=== PATIENT | male | born 1995 | race American Indian/Alaskan Native ===

== ENCOUNTER 2021-05-02 11:19 | Emergency (ER) | payer SELFPAY ==
[2021-05-02 11:30] VITALS: BP 133/61
--- NOTE | 2021-05-02 11:36 | Emergency Department Report ---
ED ENT HPI - General Chief complaint: Dental/Oral Stated complaint: TOOTH ACHE Time Seen by Provider: 05/02/21 11:32 Source: patient Mode of arrival: Ambulatory Limitations: No Limitations - History of Present Illness Initial comments: Patient presents with a 2-week history of dental pain. The pain is in the left upper molar area. The tooth is broken off. It is been temperature sensitive. He notes that it has an infection in it. He was actually on antibiotics about 3 weeks ago. This was amoxicillin for the other side of his oral cavity and den tabatha infection. He has not seen a dentist. He is aware that he needs to see a dentist. The pain in the left side today is constant and aching. It does not radiate or migrate. He states it is worse with eating and with cold foods. He has taken [id number] medication without symptomatic improvement. - Related Data Previous Rx's Medication Instructions Recorded Last Taken Type Naproxen [Naprosyn] 500 mg PO BID PRN #20 tablet 05/02/21 Unknown Rx clindamycin HCL [Clindamycin HCl] 300 mg PO 4XD #30 capsule 05/02/21 Unknown Rx Allergies Allergy/AdvReac Type Severity Reaction Status Date / Time No Known Allergies Allergy Verified 05/02/21 11:24 ED Dental HPI - General Chief complaint: Dental/Oral Stated complaint: TOOTH ACHE Time Seen by Provider: 05/02/21 11:32 Source: patient Mode of arrival: Ambulatory Limitations: No Limitations - Related Data Previous Rx's Medication Instructions Recorded Last Taken Type Naproxen [Naprosyn] 500 mg PO BID PRN #20 tablet 05/02/21 Unknown Rx clindamycin HCL [Clindamycin HCl] 300 mg PO 4XD #30 capsule 05/02/21 Unknown Rx Allergies Allergy/AdvReac Type Severity Reaction Status Date / Time No Known Allergies Allergy Verified 05/02/21 11:24 ED Review of Systems ROS: Stated complaint: TOOTH ACHE Other details as noted in HPI Comment: All other systems reviewed and negative Constitutional: denies: fever Eyes: denies: vision change ENT: as per HPI Respiratory: denies: cough Cardiovascular: denies: chest pain Endocrine: denies: unexplained weight loss Gastrointestinal: denies: vomiting Musculoskeletal: denies: back pain Skin: denies: rash Neurological: headache Hematological/Lymphatic: denies: easy bruising ED Past Medical Hx - Past Medical History Previous Medical History?: No - Surgical History Past Surgical History?: No - Family History Family history: no significant - Medications Home Medications: Home Medications Medication Instructions Recorded Confirmed Last Taken Type Naproxen [Naprosyn] 500 mg PO BID PRN #20 tablet 05/02/21 Unknown Rx clindamycin HCL [Clindamycin HCl] 300 mg PO 4XD #30 capsule 05/02/21 Unknown Rx ED Physical Exam - General Limitations: No Limitations, Other (Pulse ox noted and normal) General appearance: alert, in no apparent distress - Head Head exam: Present: atraumatic, normocephalic, normal inspection - Eye Eye exam: Present: normal appearance, EOMI. Absent: scleral icterus - ENT ENT exam: Present: mucous membranes moist, other (Patient has diffuse dental caries. There is no gingival erythema or edema. There is tenderness with palpation over the left upper wisdom tooth area. There is a fractured tooth that is broken off at the gumline.) - Neck Neck exam: Present: normal inspection. Absent: meningismus - Respiratory Respiratory exam: Absent: respiratory distress - Cardiovascular Cardiovascular Exam: Absent: JVD - Extremities Exam Extremities exam: Present: normal capillary refill - Back Exam Back exam: Present: full ROM - Neurological Exam Neurological exam: Present: alert, oriented X3, CN II-XII intact, normal gait. Absent: motor sensory deficit - Psychiatric Psychiatric exam: Present: normal affect, normal mood - Skin Skin exam: Present: warm, dry ED Course Vital Signs 05/02/21 11:29 Temperature 98.5 F Pulse Rate 71 Respiratory 16 Rate Blood Pressure 133/61 [Left] O2 Sat by Pulse 100 Oximetry - Reevaluation(s) Reevaluation #1: 05/02/21 11:36 Patient was discharged. Old records noted ED Medical Decision Making - Medical Decision Making Patient presents with dentalgia. Has evidence of an apical abscess and infection. He does not have a buccal cellulitis. There is no direct trauma that would suggest a dental fracture. He is aware that he needs to see dentist. There is no evidence of airway compromise. He does not have peritonsillar edema. There is no gingivitis. Critical Care Time: No Critical care attestation.: If time is entered above; I have spent that time in minutes in the direct care of this critically ill patient, excluding procedure time. ED Disposition Clinical Impression: Dentalgia, Apical alveolar abscess Disposition: HOME / SELF CARE / HOMELESS Is pt being admited?: No Condition: Stable Instructions: Dental Abscess, Preventive Dental Care, Adult Additional Instructions: Have a soft diet. Drink plenty water. Return for problems. See dentist as soon as possible. Take all the antibiotics. Prescriptions: clindamycin HCL [Clindamycin HCl] 300 mg PO 4XD #30 capsule Naproxen [Naprosyn] 500 mg PO BID PRN #20 tablet PRN Reason: Pain , Severe (7-10) Referrals: PRIMARY CAREMD [Referring] - 3-5 Days DEEPTI IBARRA MD [Staff Physician] - 3-5 Days Forms: Work/School Release Form(ED)
== END 2021-05-02 11:58 | disposition home or self-care (01) ==
LOC: EDBD → ED 11:19
DX: K04.7 Periapical abscess without sinus (principal)
CPT/HCPCS: 99282

== ENCOUNTER 2021-05-12 19:26 | Emergency (ER) | payer SELFPAY ==
[2021-05-12 19:40] VITALS: BP 133/75
[2021-05-12] MEDS ORDERED: IBUPROFEN 600 MG TAB PO ONE (19:46)
[2021-05-12] MEDS ORDERED: ACETAMINOPHEN W/CODEINE 300-30 MG TAB PO ONE (19:46)
[2021-05-12] MEDS ORDERED: LIDOCAINE VISCOUS 2% 15 ML ORAL LIQD PO ONE (19:46)
--- NOTE | 2021-05-12 19:49 | Emergency Department Report ---
ED ENT HPI - General Chief complaint: Dental/Oral Stated complaint: TOOTHPAIN Time Seen by Provider: 05/12/21 19:41 Source: patient Mode of arrival: Ambulatory Limitations: No Limitations - History of Present Illness Initial comments: 26 year old male presents to ED with complaints of left upper tooth pain. Onset 1 week ago. He states pain got worse yesterday. He has an appointment with Dentist next . He states he has been taking tylenol for pain without relief. He reports swelling. He denies any other symptoms. MD complaint: tooth pain -: week(s) (1) - Related Data Previous Rx's Medication Instructions Recorded Last Taken Type Naproxen [Naprosyn] 500 mg PO BID PRN #20 tablet 05/02/21 Unknown Rx Acetaminophen/Codeine [Tylenol 1 tab PO Q4HR PRN #12 tablet 05/12/21 Unknown Rx /Codeine # 3 tab] Ibuprofen [Motrin] 600 mg PO Q8H PRN #30 tablet 05/12/21 Unknown Rx clindamycin HCL [Clindamycin HCl] 300 mg PO 4XD #30 capsule 05/12/21 Unknown Rx Allergies Allergy/AdvReac Type Severity Reaction Status Date / Time No Known Allergies Allergy Verified 05/02/21 11:24 ED Dental HPI - General Chief complaint: Dental/Oral Stated complaint: TOOTHPAIN Time Seen by Provider: 05/12/21 19:41 Source: patient Mode of arrival: Ambulatory Limitations: No Limitations - Related Data Previous Rx's Medication Instructions Recorded Last Taken Type Naproxen [Naprosyn] 500 mg PO BID PRN #20 tablet 05/02/21 Unknown Rx Acetaminophen/Codeine [Tylenol 1 tab PO Q4HR PRN #12 tablet 05/12/21 Unknown Rx /Codeine # 3 tab] Ibuprofen [Motrin] 600 mg PO Q8H PRN #30 tablet 05/12/21 Unknown Rx clindamycin HCL [Clindamycin HCl] 300 mg PO 4XD #30 capsule 05/12/21 Unknown Rx Allergies Allergy/AdvReac Type Severity Reaction Status Date / Time No Known Allergies Allergy Verified 05/02/21 11:24 ED Review of Systems ROS: Stated complaint: TOOTHPAIN Other details as noted in HPI Comment: All other systems reviewed and negative ENT: dental pain Respiratory: denies: cough, shortness of breath, SOB with exertion, SOB at rest, wheezing Cardiovascular: denies: chest pain, palpitations Gastrointestinal: denies: abdominal pain, nausea, diarrhea Genitourinary: denies: urgency, dysuria, frequency, hematuria, discharge, testicular pain, testicular mass Musculoskeletal: denies: back pain, joint swelling, arthralgia Skin: denies: rash, lesions, change in color, change in hair/nails, pruritus Neurological: denies: headache, weakness, numbness, paresthesias, confusion, abnormal gait, vertigo Psychiatric: denies: anxiety, depression, auditory hallucinations, visual hallucinations, homicidal thoughts, suicidal thoughts Hematological/Lymphatic: denies: easy bleeding, easy bruising, swollen glands ED Past Medical Hx - Past Medical History Previous Medical History?: Yes Hx Asthma: Yes - Surgical History Past Surgical History?: Yes Additional Surgical History: Stomach - Social History Smoking Status: Never Smoker Substance Use Type: Marijuana - Medications Home Medications: Home Medications Medication Instructions Recorded Confirmed Last Taken Type Naproxen [Naprosyn] 500 mg PO BID PRN #20 tablet 05/02/21 Unknown Rx Acetaminophen/Codeine [Tylenol 1 tab PO Q4HR PRN #12 tablet 05/12/21 Unknown Rx /Codeine # 3 tab] Ibuprofen [Motrin] 600 mg PO Q8H PRN #30 tablet 05/12/21 Unknown Rx clindamycin HCL [Clindamycin HCl] 300 mg PO 4XD #30 capsule 05/12/21 Unknown Rx ED Physical Exam - General Limitations: No Limitations General appearance: alert, in distress (pt appears uncomfortable and in pain ) - Head Head exam: Present: atraumatic, normocephalic - Eye Eye exam: Present: normal appearance, PERRL, EOMI Pupils: Present: normal accommodation - ENT ENT exam: Present: mucous membranes moist - Expanded ENT Exam Expanded Mouth exam: Present: normal external inspection Teeth exam: Present: normal inspection 1 - Dental Tenderness (severe with severe decay to gum; +gum swelling) Throat exam: Positive: normal inspection ED Course Vital Signs 05/12/21 19:33 Temperature 97.9 F Pulse Rate 75 Respiratory 16 Rate Blood Pressure 133/75 O2 Sat by Pulse 98 Oximetry Critical care attestation.: If time is entered above; I have spent that time in minutes in the direct care of this critically ill patient, excluding procedure time. ED Disposition Clinical Impression: Apical alveolar abscess Disposition: 01 HOME / SELF CARE / HOMELESS Is pt being admited?: No Does the pt Need Aspirin: No Condition: Stable Instructions: Dental Abscess, [id number] Additional Instructions: Take the antibiotics and the pain medications as prescribed. Keep your appointment with Dentist next week. Return to ED if worse. Prescriptions: clindamycin HCL [Clindamycin HCl] 300 mg PO 4XD #30 capsule Ibuprofen [Motrin] 600 mg PO Q8H PRN #30 tablet PRN Reason: Pain Acetaminophen/Codeine [Tylenol /Codeine # 3 tab] 1 tab PO Q4HR PRN #12 tablet PRN Reason: Pain Referrals: PRIMARY CARE, [Referring] - 3-5 Days Time of Disposition: 19:49
== END 2021-05-12 20:13 | disposition home or self-care (01) ==
LOC: ED 19:26
DX: K04.7 Periapical abscess without sinus (principal); J45.909 Unspecified asthma, uncomplicated; F12.10 Cannabis abuse, uncomplicated
CPT/HCPCS: 99282